=== PATIENT | female | born 2000 | race African-American/Black ===

== ENCOUNTER 2021-05-18 17:12 | Emergency (ER) | payer OTHER ==
[~2021-05-18] VITALS: Ht 167.6 cm; Wt 90.0 kg
[2021-05-18 20:00] VITALS: BP 121/62
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
[2021-05-18] MEDS ORDERED: ACETAMINOPHEN 500 MG TABLET PO ONE (21:00)
--- NOTE | 2021-05-18 21:02 | RAD ---
Three-view left shoulder dated 05/18/2021. No comparison available. CLINICAL INDICATION: Pain. FINDINGS: 3 views left shoulder show normal bony alignment. No displaced fracture. No periostitis or bone destr uction. No acute osseous or articular abnormality. IMPRESSION: No acute radiographic abnormality. Electronically signed by: Mike Dewitt MD (05/18/2021 9:00 PM) ELA[facility]
== END 2021-05-18 21:04 | disposition home or self-care (01) ==
LOC: ER 17:12
DX: M25.512 Pain in left shoulder (principal); V89.2XXA Person injured in unspecified motor-vehicle accident, traffic, initial encounter; Y93.89 Activity, other specified; Y92.89 Other specified places as the place of occurrence of the external cause; Y99.8 Other external cause status
CPT/HCPCS: 73030; 99283